=== PATIENT | female | born 1940 | race Caucasian/White ===

== ENCOUNTER 2018-10-22 14:00 | Outpatient (CLI) | payer MEDICARE, OTHER ==
[2018-10-23 13:43] VITALS: BP 98/46
[2018-10-23] MEDS ORDERED: GABAPENTIN600 MG ORAL (14:14)
[2018-10-23] MEDS ORDERED: CALCIUM + VITA1 EAC1 PO (14:14)
[2018-10-23] MEDS ORDERED: CARISOPRODOL350 MG ORAL (14:14)
[2018-10-23] MEDS ORDERED: LEXAPRO20 MG ORAL (14:14)
[2018-10-23] MEDS ORDERED: MEDROL DOSEPAK4 MG ORAL (14:14)
[2018-10-23] MEDS ORDERED: XANAX0.5 MG ORAL (14:14)
[2018-10-23] MEDS ORDERED: TEMAZEPAM15 MG ORAL (14:14)
[2018-10-23] MEDS ORDERED: RAPAFLO8 MG ORAL (14:14)
[2018-10-23] MEDS ORDERED: PROLIA60 MG/1 ML SUBQ (14:14)
[2018-10-23] MEDS ORDERED: TRIAMTERENE-HC1 EAC7 ORAL (14:14)
--- NOTE | 2018-10-23 16:12 | GI Initial Consult Note ---
History of Present Illness General Date patient seen: Oct 23, 2018 Time patient seen: 16:05 Referring physician: JUSTINE Reason for Consultation: RECTAL PAIN Present Illness HPI This is a 78-year-old female patient who presents to us with complaint of severe rectal pain secondary to rectal prolapse versus hemorrhoids. The patient stated that she is being followed by surgical team for her hemorrhoids. Patient complains of a chronic pain in her spine. Patient also states that she has Benham Oliver lymphoma and is also being followed by oncology. Patient states that she has a history of anemia, possible rectal dysfunction with rectal prolapse surgery x3, the last one being in July 24, 2018. Denies any unintentional weight loss or changes in dietary habits. No signs of abuse or neglect. Patient is not fall risk. Home Meds Reported Medications Calcium Carbonate/Vitamin D3 (CALCIUM + VITAMIN D TABLET) 1 Each Tablet, 1 EACH PO DAILY, TAB 10/23/18 Silodosin (RAPAFLO) 8 Mg Capsule, 8 MG ORAL DAILY, CAP 10/23/18 Denosumab (Prolia) 60 Mg/1 Ml Syringe, 60 MG SUBQ EVERY 6 MONTHS, EA 10/23/18 Gabapentin* (GABAPENTIN*) 600 Mg Tablet, 600 MG ORAL THREE TIMES A DAY, TAB 10/23/18 Triamterene/Hydrochlorothiazid (TRIAMTERENE-HCTZ 37.5-25 MG CP) 1 Each Capsule, 1 CAP ORAL DAILY, CAP 10/23/18 Methylprednisolone (Methylprednisolone*) 4MG Dspk, 4 MG ORAL DIRECTED for 6 Days, #21 EA 0 Refills Day 1: Two tablets before breakfast, one after lunch, one after dinner, and two at bedtime. If started late in the day, take all six tablets at once or divide into two or three doses, unless otherwise directed by prescriber. Day 2: One tablet before breakfast, one after lunch, one after dinner, and two at bedtime Day 3: One tablet before breakfast, one after lunch, one after dinner, and one at bedtime Day 4: One tablet before breakfast, one after lunch, and one at bedtime Day 5: One tablet before breakfast and one at bedtime Day 6: One tablet before breakfast 10/23/18 Alprazolam* (XANAX*) 0.5 Mg Tablet, 0.5 MG ORAL Q4HR, TAB 10/23/18 Escitalopram Oxalate* (LEXAPRO*) 20 Mg Tablet, 20 MG ORAL DAILY, TAB 10/23/18 Carisoprodol* (CARISOPRODOL*) 350 Mg Tablet, 350 MG ORAL TID, TAB 10/23/18 Temazepam (TEMAZEPAM*) 15 Mg Capsule, 15 MG ORAL BID, #30 CAP 0 Refills 10/23/18 Med list reviewed/reconciled: Yes Allergies: Coded Allergies: HYDROMORPHONE (Verified Allergy, Unknown, 01/08/11) Patient History History Provided By: Patient, Medical Record PMH Narrative Rafael Silva lymphoma Hepatitis C status post treatment Hypertension GERD Anxiety Possible rectal dysfunction Constipation Iron deficiency Past surgical history Rectal prolapse surgery x3, last one July 24, 2018 Family History Narrative Sister had lung cancer Also had Dre Praveen lymphoma Social History: Denies: smoking, alcohol use, drug use, other Review of Systems All Other Systems: negative except mentioned in HPI Physical Exam Vital Signs Date Time Temp Pulse Resp B/P (MAP) Pulse Ox O2 Delivery O2 Flow Rate FiO2 10/23/18 13:43 98.1 93 98/46 96 Sp02 EP Interpretation: reviewed, normal General Appearance: well appearing, no apparent distress, alert Head: normocephalic EENT: PERRL/EOMI, normal ENT inspection Neck: supple Respiratory: normal breath sounds, no respiratory distress Cardiovascular: normal rate Gastrointestinal: normal inspection, non tender, soft, normal bowel sounds, non -distended Rectal: deferred Genitourinary: no CVA tenderness Musculoskeletal: normal inspection, back normal Neurologic: normal inspection, alert, oriented x3, responsive Psychiatric: normal inspection, judgement/insight normal, memory normal Skin: normal inspection, normal color, no rash, warm/dry, palpation normal, well hydrated Lymphatic: normal inspection, no adenopathy GI: Plan Problems: (1) History of hepatitis C (2) Rectal prolapse (3) Hemorrhoids (4) Chronic pain (5) Diarrhea (6) Constipation (7) Iron deficiency (8) Hypertension (9) Anxiety (10) GERD (gastroesophageal reflux disease) (11) Lymphoma Plan Will order a celiac panel We will hold flex sig plus banding at this time, will follow with additional recommendations We will collect a stool OB to rule out any GI bleed Will consider capsule endoscopy during next visit. RTC x [address] Soto. Thank you for this patient referral, we will follow. The patient was seen and examined at bedside and all new and available data was reviewed in the patients chart. I agree with the above findings, impression and plan. (Patient seen earlier today. Signature stamp does not reflect patient encounter time.). - MD Lima [facility] Oct 23, 2018 16:12
== END 2018-10-22 14:30 | disposition home or self-care (01) ==
LOC: PAN 14:00
DX: K64.9 Unspecified hemorrhoids (principal); K62.3 Rectal prolapse; Z86.19 Personal history of other infectious and parasitic diseases; G89.29 Other chronic pain; R19.7 Diarrhea, unspecified; K59.00 Constipation, unspecified; E61.1 Iron deficiency; I10 Essential (primary) hypertension; F41.9 Anxiety disorder, unspecified; C85.80 Other specified types of non-Hodgkin lymphoma, unspecified site; Z88.6 Allergy status to analgesic agent
CPT/HCPCS: 99203

== ENCOUNTER 2018-10-25 10:47 | Outpatient (CLI) | payer MEDICARE, OTHER ==
[~2018-10-25 10:47] MED LIST: CALCIUM + VITA1 EAC1 PO; CARISOPRODOL350 MG ORAL; GABAPENTIN600 MG ORAL; LEXAPRO20 MG ORAL; MEDROL DOSEPAK4 MG ORAL; PROLIA60 MG/1 ML SUBQ; RAPAFLO8 MG ORAL; TEMAZEPAM15 MG ORAL; TRIAMTERENE-HC1 EAC7 ORAL; XANAX0.5 MG ORAL
[2018-10-25 15:45] VITALS: BP 93/46
--- NOTE | 2018-10-25 16:00 | GI Progress Note ---
Assessment/Plan Problems: (1) History of hepatitis C ICD Codes: Z86.19 - Personal history of other infectious and parasitic diseases SNOMED: 82228442, 83310582146295 (2) Chronic pain ICD Codes: G89.29 - Other chronic pain SNOMED: 45878958 (3) GERD (gastroesophageal reflux disease) ICD Codes: K21.9 - Gastro-esophageal reflux disease without esophagitis SNOMED: 621157899 (4) Anxiety ICD Codes: F41.9 - Anxiety disorder, unspecified SNOMED: 98467715 (5) Iron deficiency ICD Codes: E61.1 - Iron deficiency SNOMED: 46240526 (6) Constipation ICD Codes: K59.00 - Constipation, unspecified SNOMED: 90239823 Status: stable Status Narrative Discussed with Dr. Soto Assessment/Plan Small bowel capsule endoscopy today Return to clinic tomorrow for equipment return We will contact patient for follow-up appointment pending imaging results The patient was seen and examined at bedside and all new and available data was reviewed in the patients chart. I agree with the above findings, impression and plan. (Patient seen earlier today. Signature stamp does not reflect patient encounter time.). - Papo Soto MD Subjective Gastrointestinal/Abdominal: Reports: no symptoms Objective Last 24 Hour Vital Signs Date Time Temp Pulse Resp B/P (MAP) Pulse Ox O2 Delivery O2 Flow Rate FiO2 10/25/18 15:45 97.8 74 16 93/46 95 General Appearance: WD/WN, no apparent distress, alert Cardiovascular: normal rate Respiratory/Chest: normal breath sounds, no respiratory distress Abdominal Exam: normal bowel sounds, non tender, soft Extremities: normal range of motion, non-tender Ashanti Amato MED ADMIN Oct 25, 2018 16:00
--- NOTE | 2018-11-06 16:00 | Procedure Note ---
DATE OF PROCEDURE: 10/25/2018 SURGEON: Papo Soto M.D. PROCEDURE: Capsule endoscopy. INDICATION: Anemia REASON FOR PROCEDURE: The procedure, risks, benefits, and possible consequences, including hemorrhage, aspiration, perforation and infection, and alternative treatments, were explained to the patient/legal guardian by Dr. Papo Soto and the patient/legal guardian understood and accepted these risks. PROCEDURE IN DETAIL: The patient swallowed the camera. Camera spent about 16 minutes in the stomach before it entered the small bowel and spent about 3 hours and 15 minutes in the small bowel before it entered the colon. No active bleeding was seen. No blood or blood products was picked up by the capsule. The quality of prep was fair. The capsule went into the small intestine fast in 3 hours. Again, but no obvious bleeding. SUMMARY OF FINDINGS: Three hours and 15 minutes of small intestine study without any obvious active bleeding. RECOMMENDATIONS: The patient apparently had a negative stool for OB. She has complained of some rectal bleeding. We will recommend the patient to come back to the clinic for followup for possible flex endoscopy and banding of the hemorrhoids. Papo Soto M.D. DR: ADELAIDA JOB#: [id number] CC:
== END 2018-10-25 12:47 | disposition home or self-care (01) ==
LOC: PAN 10:47
DX: G89.29 Other chronic pain (principal); K21.9 Gastro-esophageal reflux disease without esophagitis; Z86.19 Personal history of other infectious and parasitic diseases; F41.9 Anxiety disorder, unspecified; E61.1 Iron deficiency; K59.00 Constipation, unspecified